=== PATIENT | male | born 1940 | race Caucasian/White ===

== ENCOUNTER 2020-11-06 17:32 | Inpatient (IN) ==
[2020-11-06] MEDS ORDERED: Perflutren Lipid Microsphere 1.3 ML in 0.9 % Sodium Chloride 8.7 ML IVP PRN (21:21)
[2020-11-06] MEDS ORDERED: Aspirin Enteric Coated 325 MG Tablet PO ONE (22:05)
[2020-11-06] MEDS ORDERED: Naloxone 0.4 MG/ML INJ IVP PRN (22:06)
[2020-11-06] MEDS ORDERED: Ondansetron 4 MG/2 ML VIAL IVP PRN (22:06)
[2020-11-06] MEDS ORDERED: Acetaminophen 325 MG TABLET PO PRN (22:06)
[2020-11-07 00:45] LABS: Bilirubin,Urine Negative (Negative); Blood,Urine Moderate (Negative); Clarity,Urine Clear (Clear); Color,Urine Light-Yellow (Yellow); Glucose,Urine (UA) Normal (Normal); Ketones,Urine Negative (Negative); Leukocyte Esterase,Urine Trace (Negative); Mucus,Urine Few per lpf (None-Few); Nitrite,Urine Negative (Negative); Protein,Urine 70 mg/dL (Neg-Trace); Specific Gravity,Urine 1.016 (1.010-1.025); Urobilinogen,Urine Normal (Normal)
[2020-11-07 04:58] LABS: Hematocrit 29.9 % (37.5-50.1); Hemoglobin 9.6 g/dL (12.9-16.9); Mean Corpuscular HGB Conc 32.1 g/dL (31.6-35.5); Mean Corpuscular Hemoglobin 31.7 pg (28.0-33.3); Mean Corpuscular Volume 98.7 fL (83.0-100.0); Mean Platelet Volume 11.1 fL (9.4-12.4); Platelet Count 155 K/mcL (140-400); Red Blood Count 3.03 M/mcL (4.19-5.50); Red Cell Distribution Width 14.6 % (11.5-14.5); White Blood Count 8.2 K/mcL (4.3-11.1)
[2020-11-07 05:10] LABS: INR 1.1; Prothrombin Time 12.4 Seconds (9.4-12.1)
[2020-11-07 05:14] LABS: Activated Partial Thrombo Time 23.7 Seconds (26.0-36.0)
[2020-11-07 05:18] LABS: % Iron Saturation 47 % (20-55); Iron 94 mcg/dL (65-175); Transferrin 142 mg/dL (203-362)
[2020-11-07 05:19] LABS: Chol/HDL Ratio 3.8 (0-4.9); Potassium 4.7 mEq/L (3.5-5.1)
[2020-11-07 05:36] LABS: Ferritin 383 ng/mL (20-250)
[2020-11-07] MEDS ORDERED: Famotidine 20 MG/2 ML VIAL IVP SCH (06:00)
[2020-11-07] MEDS: Aspirin Enteric Coated 81 MG Tablet PO SCH (09:08)
[2020-11-07] MEDS: Finasteride 5 MG TABLET PO SCH (09:08)
[2020-11-07 10:21] LABS: Estimated Average Glucose 126 mg/dl
[2020-11-07] MEDS ORDERED: *HR* Heparin 5,000 UNIT/ML VIAL IVP PRN ×2 (17:03)
[2020-11-07] MEDS ORDERED: *HR* Heparin 5,000 UNIT/ML VIAL IVP ONE (17:03)
[2020-11-07] MEDS ORDERED: Heparin 25,000UNIT/250ML 1/2NS 25,000 UNIT/250 ML IV.SOLN IVC SCH (17:15)
[2020-11-07] MEDS ORDERED: Warfarin perPT PO PRN (18:00)
[2020-11-07] MEDS ORDERED: *HR* Warfarin 2.5 MG TABLET PO ONE (18:00)
[2020-11-07] MEDS ORDERED: *HR* Heparin 5,000 UNIT/ML VIAL SQ SCH (18:00)
[2020-11-07 18:29] LABS: Hematocrit 31.3 % (37.5-50.1); Hemoglobin 9.9 g/dL (12.9-16.9); Mean Corpuscular HGB Conc 31.6 g/dL (31.6-35.5); Mean Corpuscular Hemoglobin 31.4 pg (28.0-33.3); Mean Corpuscular Volume 99.4 fL (83.0-100.0); Mean Platelet Volume 11.3 fL (9.4-12.4); Platelet Count 163 K/mcL (140-400); Red Blood Count 3.15 M/mcL (4.19-5.50); Red Cell Distribution Width 14.7 % (11.5-14.5)
[2020-11-07 18:41] LABS: INR 1.1; Prothrombin Time 12.5 Seconds (9.4-12.1)
[2020-11-07 18:44] LABS: Heparin anti-factor XA UFH < 0.04 IU/mL (0.30-0.70)
[2020-11-08 00:45] LABS: Hemoglobin 9.3 g/dL (12.9-16.9); Mean Corpuscular HGB Conc 33.2 g/dL (31.6-35.5); Mean Corpuscular Volume 96.2 fL (83.0-100.0); Mean Platelet Volume 11.1 fL (9.4-12.4); Platelet Count 151 K/mcL (140-400); Red Blood Count 2.91 M/mcL (4.19-5.50); Red Cell Distribution Width 14.4 % (11.5-14.5); White Blood Count 9.3 K/mcL (4.3-11.1)
[2020-11-08 00:54] LABS: INR 1.1; Prothrombin Time 13.2 Seconds (9.4-12.1)
[2020-11-08 01:03] LABS: Calcium 8.7 mg/dL (8.6-10.3); Potassium 4.6 mEq/L (3.5-5.1)
[2020-11-08 01:17] LABS: Heparin anti-factor XA UFH 1.3 IU/mL (0.30-0.70)
[2020-11-08 07:21] VITALS: BP 129/56
[2020-11-08] MEDS: Finasteride 5 MG TABLET PO SCH (07:56)
[2020-11-08] MEDS: Aspirin Enteric Coated 81 MG Tablet PO SCH (07:57)
[2020-11-08] MEDS ORDERED: Cyanocobalamin (B-12) 1,000 MCG TABLET PO SCH (09:00)
[2020-11-08] MEDS ORDERED: amLODIPine 5 MG TABLET PO SCH (09:00)
[2020-11-08] MEDS ORDERED: Famotidine 20 MG/2 ML VIAL IVP SCH (09:00)
[2020-11-08] MEDS ORDERED: *HR* Warfarin 2.5 MG TABLET PO ONE (18:00)
== END 2020-11-08 16:11 | disposition home or self-care (01) | DRG 309 ==
LOC: 2NENU → SUATTDRO 20:15
PROVIDERS: ADMIT Internal Medicine; ATTEND Internal Medicine